=== PATIENT | male | born 1955 | race Caucasian/White ===

== ENCOUNTER 2019-01-27 23:33 | Emergency (ER) | payer OTHER, MEDICARE ==
[~2019-01-27] VITALS: Ht 188 cm; Wt 83.9 kg
--- NOTE | 2019-01-27 23:33 | NUR ---
Patient triaged and placed in waiting room. VSS and patient appears in no acute distress at this time. Accompanied by SELF, awaiting available bed, and MD notified of need for MSE.
[2019-01-27 23:38] VITALS: BP_SYST 106
--- NOTE | 2019-01-28 01:56 | NUR ---
Suture tray was set up.
--- NOTE | 2019-01-28 01:56 | NUR ---
Patient to ER bed h1 to gown for evaluation. Side rails up.
--- NOTE | 2019-01-28 01:56 | NUR ---
Patient complains of laceration to left thumb status post accidentally cutting it with a knife while cutting off a zip-tie. Approximately 1.5 x 1.5cm V-shaped laceration to left thumb. Bleeding is controlled. Pt wrapped finger with coban and applied pressure. No other injuries/complaints per patient or noted.
--- NOTE | 2019-01-28 01:57 | NUR ---
Patient was moved to bed 1.
--- NOTE | 2019-01-28 01:58 | NUR ---
ER Dr. Chadwick at bedside examining patient.
[2019-01-28] MEDS ORDERED: DIPH-TET-PERTUS Vaccine 0.5 ML VIAL (ADACEL) I.M. ONE (03:15)
[2019-01-28 03:25] VITALS: BP_SYST 106
--- NOTE | 2019-01-28 03:25 | NUR ---
Patient given written and verbal discharge instructions and verbalizes understanding. ER MD discussed with patient the results and treatment provided. Patient in stable condition. ID arm band removed. Rx of Keflex given. Patient educated on pain management and to follow up with PMD. Pain Scale 0. Opportunity for questions provided and answered. Medication side effect fact sheet provided.
[2019-01-28] MEDS ORDERED: BACITRACIN 1 GM OINT TP ONE (03:29)
== END 2019-01-28 03:25 | disposition home or self-care (01) ==
LOC: SED 23:33
DX: S61.012A Laceration without foreign body of left thumb without damage to nail, initial encounter (principal); W26.0XXA Contact with knife, initial encounter; Y93.89 Activity, other specified; Y92.89 Other specified places as the place of occurrence of the external cause; Y99.8 Other external cause status
CPT/HCPCS: 90715; 99283